=== PATIENT | female | born 1960 | race Caucasian/White ===

== ENCOUNTER 2019-09-29 15:21 | Inpatient (IN) | payer BC, SELFPAY ==
[2019-09-29 15:04] VITALS: BP 173/96; PULSE 80; RESP 16; TEMP 36.9; O2SAT 98; BMI 33.8
--- NOTE | 2019-09-29 15:16 | ED_ITS ---
HPI - Psych General: Chief Complaint: Psychiatric Symptoms Stated Complaint: SI/HI Source: patient and EMS Mode of arrival: EMS Limitations: no limitations History of Present Illness: HPI Narrative: Patient presents here with suicidal ideations. Patient is here with EMS and states that her has been fighting a lot lately and she has been drinking alcohol and has had suicidal thoughts and homicidal thoughts. She states she started getting a shotgun and either shooting herself or shooting her . She denies any worsening or improving factors. MD complaint: suicidal ideation Onset (ago): day(s) Duration: constant Relieving factors: none Exacerbating factors: none Context: recent alcohol abuse Associated symptoms: Reports depression, homicidal ideation and suicidal ideation Review of Systems Const: Denies: fever, chills, body aches or change in appetite Eyes: Denies: blurry vision or eye discomfort ENMT: Denies: throat pain or dental pain Card: Denies: chest pain Resp: Denies: shortness of breath GI: Denies: abdominal pain, nausea, vomiting or diarrhea : Denies: painful urination Musc: Denies: neck pain or back pain Skin/Breast: Denies: rash Neuro: Denies: headache Psych: Reports: depression, suicidal ideation and homicidal ideation Marc/Lymph: Denies: easy bruising All/Imm: Denies: hives PFSH ED PFSH: Social History Smoking and tobacco status: current every day smoker Physical Exam Const: COMMON NORMALS: no apparent distress, oriented x3 and healthy appearing HENMT: COMMON NORMALS: normocephalic and head/scalp atraumatic HEAD & SCALP: normocephalic and atraumatic Eye: COMMON NORMALS: PERRL and EOMs intact bilaterally PUPIL: Yes PERRL Neck/C-Spine: COMMON NORMALS: full ROM and supple Chest: COMMONS NORMALS: inspection of chest normal and palpation of chest normal Resp: COMMON NORMALS: normal respiratory effort, no retractions, no use of accessory muscles and clear to auscultation bilaterally AUSCULTATION: clear to auscultation bilaterally Cardio: COMMON NORMALS: regular rate, regular rhythm and no murmurs RATE: regular rate RHYTHM: regular rhythm GI: COMMON NORMALS: normal to inspection, nondistended, normoactive bowel sounds, soft to palpation, non-tender and no masses PALPATION: Yes soft Extremity: COMMON NORMALS: normal to inspection and full ROM Neuro: COMMON NORMALS: oriented x3, moves all extremities and no focal motor deficits Psych: COMMON NORMALS: mental status grossly normal, thought process normal and cooperative THOUGHT PROCESS: normal thought process THOUGHT CONTENT: Yes suicidality and Yes homicidality Skin: COMMON NORMALS: no rashes or lesions noted and no wounds GENERAL SKIN EXAM: no rashes or lesions noted MDM - Psych MDM Narrative: Medical decision making narrative: Patient presents for suicidal ideations along with homicidal ideations. Doing patient's medical clearance patient is found to be hyponatremic with sodium in the 121. This is likely due to her alcoholism. Spoke to hospitalist and will admit to correct her sodium. Patient is under a 96-hour hold and I spoke to Dr. Emery who is consulted. Lab Data: Labs: Lab Results 09/29/19 09/29/19 Range/Units 15:35 15:35 WBC 8.5 (4.0-10.0) 10^3/ uL RBC 4.39 (4.1-5.3) 10^6/u L Hgb 13.1 (11.5-15.3) g/dL Hct 39.0 (37.0-47.0) % MCV 88.8 (81-99) fL MCH 29.8 (28.0-34.0) pg MCHC 33.6 (30.0-36.0) g/dL RDW 13.6 (12.1-15.1) % Plt Count 361 (130-400) 10^3/c mm MPV 8.6 (7.4-10.4) fL Neut % (Auto) 61.4 % Lymph % (Auto) 32.4 % [place] % (Auto) 4.8 % Eos % (Auto) 0.5 % Baso % (Auto) 0.5 % Neut # (Auto) 5.3 (1.8-7.7) 10^3/u L Lymph # (Auto) 2.8 (0.8-4.8) 10^3/u L [place] # (Auto) 0.4 (0.2-0.9) 10^3/u L Eos # (Auto) 0.0 (0.0-0.8) 10^3/u L Baso # (Auto) 0.0 (0.0-0.1) 10^3/u L Nucleated RBC % (a uto) 0 % Nucleated RBCs # 0.0 /100WBC Sodium 121 L (136-145) mmol/L Potassium 4.3 (3.5-5.1) mmol/L Chloride 83 L (98-107) mmol/L Carbon Dioxide 24 (22-29) mmol/L Anion Gap 18.3 (5-19) BUN 3 L (6-20) mg/dL Creatinine 0.4 L (0.5-0.9) mg/dL GFR Calculation 163.9 H (90-130) mL/min Glucose 91 (65-115) mg/dL Calculated Osmolal ity 247 L (285-295) mOsm/k g Calcium 9.7 (8.5-10.5) mg/dL Total Bilirubin 0.4 (0.15-1.2) mg/dL AST 30 (0-32) U/L ALT 19 (0-33) U/L Alkaline Phosphata se 108 H (35-105) IU/L Total Protein 8.3 (6.6-8.7) g/dL Albumin 4.5 (3.5-5.2) g/dL Globulin 3.8 (1.3-4.6) g/dL Salicylates < 0.3 L (3-10) mg/dL Acetaminophen < 5.0 L (10-30) ug/mL Ethyl Alcohol 238 H (0-10) mg/dL Discharge Plan Discharge Patient Disposition: Admitted As Inpatient Clinical Impression: Suicidal ideation, Acute hyponatremia Alcohol intoxication Qualifiers: Complication of substance-induced condition: uncomplicated Qualified Code(s): F10.920 - Alcohol use, unspecified with intoxication, uncomplicated Condition: Stable Coding Level of Care Code ED Plate Hanger for [facility] Fwd Exam Comprehensive
[2019-09-29 15:45] LABS: Basophils % 0.5 %; Eosinophils % 0.5 %; Hemoglobin 13.1 g/dL (11.5-15.3); Lymphocytes # 2.8 10^3/uL (0.8-4.8); Lymphocytes % 32.4 %; Mean Corpuscular HGB Conc 33.6 g/dL (30.0-36.0); Mean Corpuscular Hemoglobin 29.8 pg (28.0-34.0); Mean Corpuscular Volume 88.8 fL (81-99); Mean Platelet Volume 8.6 fL (7.4-10.4); Monocytes # 0.4 10^3/uL (0.2-0.9); Monocytes % 4.8 %; Neutrophils # 5.3 10^3/uL (1.8-7.7); Neutrophils % 61.4 %; Nucleated Red Blood Cells % 0 %; Platelet Count 361 10^3/cmm (130-400); Red Blood Count 4.39 10^6/uL (4.1-5.3); Red Cell Distribution Width 13.6 % (12.1-15.1); White Blood Count 8.5 10^3/uL (4.0-10.0)
[2019-09-29 16:07] LABS: Acetaminophen < 5.0 ug/mL (10-30); Alanine Aminotransferase 19 U/L (0-33); Albumin Level 4.5 g/dL (3.5-5.2); Alcohol Level 238 mg/dL (0-10); Alkaline Phosphatase 108 IU/L (35-105); Anion Gap 18.3 (5-19); Aspartate Amino Transferase 30 U/L (0-32); Blood Urea Nitrogen 3 mg/dL (6-20); Calcium 9.7 mg/dL (8.5-10.5); Carbon Dioxide 24 mmol/L (22-29); Chloride 83 mmol/L (98-107); Globulin 3.8 g/dL (1.3-4.6); Glomerular Filtration Rate 163.9 mL/min (90-130); Glucose 91 mg/dL (65-115); Osmolality Calculated 247 mOsm/kg (285-295); Potassium 4.3 mmol/L (3.5-5.1); Salicylate < 0.3 mg/dL (3-10); Sodium 121 mmol/L (136-145); Total Bilirubin 0.4 mg/dL (0.15-1.2); Total Protein 8.3 g/dL (6.6-8.7)
--- NOTE | 2019-09-29 16:18 | XR_ITS ---
WS: [id number] PORTABLE CHEST HISTORY: Psychiatric evaluation. COMPARISON: 12/08/2015 Lungs are clear and well expanded. No pleural effusion or pneumothorax. Cardiac size: Normal. Mediastinum/Aorta: Normal mediastinum. No osseous abnormality seen. XR/XR chest 1V portable [id number] IMPRESSION: Unremarkable portable chest.
--- NOTE | 2019-09-29 16:34 | P.HP_ITS ---
Providers/Chief Complaint Primary Care Provider: Denise Koch Chief Complaint: SI, ALCOHOL INTOX, HYPONATREMIA History of Present Illness Bruna Benjamin is a 59 year old female with past medical history of alcohol abuse, suicidal ideations in the past for which she has been admitted to the neuropsychiatric unit, history of anxiety and depression, post cholecystectomy, hepatitis C, HTN, who presented to the ER today complaining that she has suicidal and homicidal ideations. Patient states she has been feeling more and more depressed for last few weeks. Patient states she consumes 6-7 beers every day with last binge today morning. She denies of any dizziness, headache, nausea, vomiting, abdominal pain, dysuria, diarrhea, headache, hallucinations, tremors. Patient was put in 96-hour hold from the ER and psychiatry was consulted. Blood work was within normal limits except sodium being 121 so hospitalist service was requested for further work-up. Review of Systems Const: Denies: fever, chills, body aches, change in appetite, malaise, night sweats, diaphoresis, change in sleep pattern, daytime sleepiness or snoring Eyes: Denies: change in vision, blurry vision, photophobia, eye discomfort or eye discharge ENMT: Denies: throat pain, enlarged tonsils, hoarseness, mouth pain, oral sores/lesions, dry mouth, tinnitus, nasal congestion or post nasal drip Card: Denies: chest pain, palpitations, irregular heart rhythm, edema, swelling of feet/ankles, lightheadedness, syncope, pre-syncope, shortness of breath on exertion, shortness of breath when lying down, leg pain with exertion or bluish discoloration of hands/feet Resp: Denies: shortness of breath, productive cough, non-productive cough, wheezing, stridor, pain on inspiration, change in phlegm color, coughing up blood or chest congestion GI: Denies: abdominal pain, nausea, vomiting, vomiting blood, coffee grounds in vomit, difficulty swallowing, heartburn/indigestion, diarrhea, constipation, bloating, cramping, change in bowel habits, painful bowel movements, blood in stool or black tarry stool : Denies: flank pain, painful urination, urinary frequency, urinary urgency, urinary hesitancy, nighttime urination or blood in urine Musc: Denies: neck pain, back pain, extremity pain, joint pain, joint swelling, redness, joint stiffness or limited range of motion Neuro: Denies: headache, numbness in extremities, weakness in extremities, changes in sensation, lack of coordination, difficulty walking, frequent falls, dizziness, vertigo, confusion, slurred speech, difficulty communicating thoughts or seizure-like activity Psych: Reports: anxiety, depression and mood swings; Denies: panic attacks, hopelessness or irritability Endo: Denies: excessive urination, excessive thirst, tired all the time, cold intolerance, excessive sweating, flushing or heat intolerance Marc/Lymph: Denies: easy bruising or easy bleeding All/Imm: Denies: tongue swelling, facial swelling or acute wheezing Medications/Allergies Home Medications Medication Instructions Recorded Confirmed Last Taken Type gabapentin 800 mg PO TID 09/29/19 09/29/19 09/29/19 History lisinopril 20 mg PO DAILY 09/29/19 09/29/19 09/29/19 History omeprazole 40 mg PO DAILY 09/29/19 09/29/19 09/29/19 History oxycodone-acetaminophen [Percocet] 1 tab PO Q4H PRN 09/29/19 09/29/19 09/29/19 History quetiapine 200 mg PO BEDTIME 09/29/19 09/29/19 Unknown History tizanidine 4 mg PO BID PRN 09/29/19 09/29/19 Unknown History Allergies Allergy/AdvReac Type Severity Reaction Status Date / Time No Known Allergies Allergy Verified 09/29/19 15:16 PFSH Acute PFSH: Medical History (Updated 09/29/19 @ 16:40 by Scott Parks MD) Alcohol abuse Anxiety Bipolar disorder Chronic pain COPD (chronic obstructive pulmonary disease) Hepatitis C Hypertension Surgical History (Updated 09/29/19 @ 16:40 by Scott Parks MD) History of cholecystectomy Hx of right knee surgery Family History (Updated 09/29/19 @ 16:40 by Scott Parks MD) Other Alcoholism /alcohol abuse Cancer Social History (Updated 09/29/19 @ 16:40 by Scott Parks MD) Smoking and tobacco status: current every day smoker Alcohol intake: current Vitals/I&O/Wt Last Vital Signs Temp 98.4 F 09/29/19 15:04 Pulse 80 09/29/19 15:04 Resp 16 09/29/19 15:04 BP 173/96 09/29/19 15:04 Pulse Ox 98 09/29/19 15:04 Weight last 48 hrs Weight 83.915 kg Physical Exam Narrative: EXAM NARRATIVE: General: No acute distress, AO x3 HEENT: PERRLA, pupils bilaterally equal and reactive Chest: Normal vesicular breath sounds, no added sounds, equal good air entry bilaterally CVS: S1-S2 regular, no murmurs, no tachycardia, no gallops, no rubs Abdomen: Soft, nontender, no organomegaly, bowel sounds present Neuro: No focal deficits, no facial deformity, AO x3, power 5/5 in all limbs Data : 09/29/19 15:35 09/29/19 15:35 A&P Assessment and plan (1) Suicidal ideation: Status: Acute (2) Alcohol intoxication: Status: Acute Qualifiers: Complication of substance-induced condition: uncomplicated Qualified Co de(s): F10.920 - Alcohol use, unspecified with intoxication, uncomplicated (3) Acute hyponatremia: Status: Acute (4) Hypertension: Status: Acute (5) Chronic pain: Status: Acute (6) Bipolar disorder: Status: Acute Additional A&P Information Suicidal ideation: History of depression/anxiety/bipolar disorder: 96-hour hold placed by the ER. Psychiatry consulted. Continue home medication of Seroquel. Check vitamin B12, folate, TSH levels. Check urine drug screen. Alcoholic intoxication: Blood alcohol level elevated. Banana bag, p.o. thiamine, p.o. folic acid, oral multivitamin. After banana bag normal saline at 75 cc/h. [facility] protocol Ativan. Protonix 40 mg oral daily. Acute hyponatremia: Sodium levels 121. In past has gone down as low as 122 as per the records. Check urine electrolytes, urine osmolality, serum osmolality. IV fluids with normal saline at 75 cc/h. Check BMP every 12 hourly to prevent fast overcorrection. Check hepatitis and HIV, hCG, urinalysis, ammonia levels. Chronic pain syndrome: Patient is on Percocet every 4 hourly, gabapentin 800 mg 3 times daily. We will start on gabapentin 300 3 times daily, Percocet 5/325 every 6 hours as needed to avoid withdrawal. Hypertension: For now start on home dose of lisinopril. We will continue to monitor blood pressures. We will change medications as per the clinical course. Full code. Regular diet. Attestations Medical Necessity Statement*: More than 2 midnights for suicidal ideation. 96-hour hold Time Spent in Patient Care: Greater than 35 minutes Coding Level of Care Code Acute Electric Meter Installer for [facility] Fwd Diagnoses Suicidal ideation R45.851 Alcohol intoxication F10.920 Complication of substance-induced condition: uncomplicated Acute hyponatremia E87.1 Hypertension I10 Chronic pain G89.29 Bipolar disorder F31.9
--- NOTE | 2019-09-29 16:52 | PC.NURSE ---
portable chest xray at bedside
[2019-09-29] MEDS: sodium chloride 0.9% 1,000 ML 999 ML IV (16:57)
[2019-09-29 16:58] LABS: Iron 80 ug/dL (37-145); Percent Saturation 25.2 % (20-50); Total Iron Binding Capacity 317 mcg/dl; Unsaturated Iron Binding 237 ug/dL (112-347)
[2019-09-29 17:14] LABS: HIV 1 & 2 Antibody Non-Reactive (Non-Reactiv); HIV 1 & 2 Antigen Non-Reactive (Non-Reactiv)
[2019-09-29] MEDS: folic acid 1 MG, multivitamin inj 10 ML, thiamine 100 MG in sodium chloride 0.9% 1,000 ML 252.8 MG IV (17:15)
[2019-09-29 17:21] LABS: Hepatitis A Antibody IgM Non-Reactive (Nonreactive); Hepatitis B Core AB, Total Non-Reactive (Nonreactive); Hepatitis B Surface AB 3.5 (0-8.5); Hepatitis B Surface Antigen Non-Reactive (Nonreactive); Hepatitis C Virus Antibody Reactive (Nonreactive)
[2019-09-29 17:35] LABS: Amphetamines Screen Urine Negative (Negative); Barbiturates Screen Urine Negative (Negative); Benzodiazepines Screen Urine Negative (Negative); Cocaine Screen Urine Negative (Negative); HCG Qualitative Urine. Negative (Negative); Opiate Screen Urine Negative (Negative); PCP Screen Urine Negative (Negative); THC Screen Urine Negative (Negative)
[2019-09-29 17:45] LABS: Potassium, Radom Urine 30 mmol/L; Urine Random Chloride 56 mmol/L; Urine Random Sodium 41 mmol/L
[2019-09-29 17:57] LABS: Urine Appearance Clear (CLEAR); Urine Color Yellow (Yellow); pH Urine 7 (5-7)
[2019-09-29 17:58] LABS: Add Urine Culture? No; Bacteria Urine 3+; Bilirubin Urine Neg (NEGATIVE); Blood Urine Neg (Negative); Glucose Urine UA Norm (Normal); Ketones Urine Negative (Negative); Leukocyte Esterase Urine Negative (Negative); Nitrate Urine Negative (Negative); Protein Urine Neg (Negative); Squamous Epithelial Cell Urine 0-4 (0-5); Urobilinogen Urine Norm (Negative); WBC Urine 0-4 /hpf (0-5)
[2019-09-29 18:40] VITALS: BP 164/85; PULSE 86; RESP 16; TEMP 36.6; O2SAT 96
[2019-09-29 18:47] VITALS: PULSE 87; RESP 16; O2SAT 97
[2019-09-29 18:59] VITALS: RESP 18
[2019-09-29] MEDS: oxyCODONE-APAP 5-325 mg Tablet 1 TAB PO (18:59)
[2019-09-29 20:00] VITALS: BP 162/84; PULSE 90; RESP 18; TEMP 36.8; O2SAT 93
[2019-09-29] MEDS: gabapentin 300 mg Capsule PO (20:12)
[2019-09-29] MEDS: enoxaparin 40 mg/0.4 mL Syringe SUBCUT (20:12)
[2019-09-29] MEDS: LORazepam 2 mg Tablet PO (20:12)
[2019-09-29] MEDS: quetiapine 100 mg Tablet 200 MG PO (20:13)
[2019-09-29] MEDS: sodium chloride 0.9% 1,000 ML 75 ML IV (20:13)
[2019-09-29 20:22] LABS: Lactic Sepsis W/Reflex 1.1 mmol/L (0.5-2.2)
[2019-09-29 20:29] LABS: Thyroid Stimulating Hormone 0.18 uIU/mL (0.27-4.20)
--- NOTE | 2019-09-29 21:46 | PC.NURSE ---
Patient is resting with eyes closed.
--- NOTE | 2019-09-29 21:51 | PC.NURSE ---
Gave report to AUDI Bahena. Shruti to assume patient care at this time.
[2019-09-30] VITALS (10 sets, daily range): BP systolic 139–176; BP diastolic 79–95; PULSE 81–100; RESP 15–20; TEMP 36.4–36.9; O2SAT 91–98
[2019-09-30] MEDS: oxyCODONE-APAP 5-325 mg Tablet 1 TAB PO ×3 (00:56→15:36)
[2019-09-30 05:34] LABS: Basophils % 0.4 %; Eosinophils # 0.1 10^3/uL (0.0-0.8); Eosinophils % 0.9 %; Hematocrit 34.6 % (37.0-47.0); Hemoglobin 11.4 g/dL (11.5-15.3); Lymphocytes # 2.8 10^3/uL (0.8-4.8); Lymphocytes % 29.7 %; Mean Corpuscular HGB Conc 32.9 g/dL (30.0-36.0); Mean Corpuscular Hemoglobin 29.8 pg (28.0-34.0); Mean Corpuscular Volume 90.6 fL (81-99); Mean Platelet Volume 9.2 fL (7.4-10.4); Monocytes % 10.8 %; Neutrophils # 5.5 10^3/uL (1.8-7.7); Neutrophils % 57.9 %; Nucleated Red Blood Cells % 0 %; Platelet Count 324 10^3/cmm (130-400); Red Blood Count 3.82 10^6/uL (4.1-5.3); Red Cell Distribution Width 14.1 % (12.1-15.1); White Blood Count 9.5 10^3/uL (4.0-10.0)
[2019-09-30 05:58] LABS: Alanine Aminotransferase 16 U/L (0-33); Albumin Level 3.9 g/dL (3.5-5.2); Alkaline Phosphatase 81 IU/L (35-105); Anion Gap 14.9 (5-19); Aspartate Amino Transferase 26 U/L (0-32); Blood Urea Nitrogen 6 mg/dL (6-20); Calcium 9.3 mg/dL (8.5-10.5); Carbon Dioxide 24 mmol/L (22-29); Chloride 99 mmol/L (98-107); Globulin 3.1 g/dL (1.3-4.6); Glomerular Filtration Rate 126.7 mL/min (90-130); Glucose 72 mg/dL (65-115); Osmolality Calculated 272 mOsm/kg (285-295); Potassium 3.9 mmol/L (3.5-5.1); Sodium 134 mmol/L (136-145); Total Bilirubin 0.5 mg/dL (0.15-1.2)
[2019-09-30] MEDS: multivitamin therapeutic Tablet 1 TAB PO (08:16)
[2019-09-30] MEDS: thiamine 100 mg Tablet PO (08:16)
[2019-09-30] MEDS: lisinopril 20 mg Tablet PO (08:16)
[2019-09-30] MEDS: gabapentin 300 mg Capsule PO ×3 (08:16→21:01)
[2019-09-30] MEDS: folic acid 1 mg Tablet PO (08:16)
--- NOTE | 2019-09-30 10:03 | PC.CHAP ---
Pastoral Care Encounter/Spiritual Assessment Type of Contact [] Declined medical coding specialist visit [] Patient/Family/Request visit [] Outpatient visit [] Follow-up visit [] Physician referral [] Code/Alert [x] Routine visit [] Staff referral [] Actively dying [] Patient sleeping [] Family support [] [] Out of room [] Palliative care [] [] Receiving care in room [] Pre-surgical visit [] Trauma [] Long length of stay [] ICU visit [] Other: Relational/Emotional Strength [] Patient feels connected with others/family/visitors/staff [] Distress [] Loneliness/isolation [] Abandonment Spirituality of Patient [] Person of Cindy [] Attends Denominational of their Cindy [] Believes in Prayer [] Reads Bible or Orthodoxy materials [] There are Spiritual issues to be addressed Public Relations Supervisor Interventions [] Prayer [] Active listening [] Non-anxious presence [] Spiritual/emotional support [] Crisis/trauma care [] Spiritual counseling [] Bereavement support [] Provided bereavement packet [] Provided Bible/devotional materials [] Provided toy/stuffed animal, coloring book to patient or family member [] Provided Communion [] Anointing/[place] [] Salvation [x] Completed spiritual assessment [] Other: Impact on Illness or Injury [] Angry [] Fearful [] Anxious [] Often cries [] Exhaustion [] Unable to work [] Unable to attend jain [] Unable to walk/stand [] Unable to read [] Unable to drive [] Unable to eat/drink [] Unable to sleep [] Unable to be with family [] Patient intubated [] Other: Summary Patient didn't declined Roro- Patient declined prayer. Advised her if she changed mind just call. Time spent with patient 5 min
[2019-09-30] MEDS: tizanidine 4 mg Tablet PO ×2 (10:34→21:01)
[2019-09-30] MEDS: amlodipine 5 mg Tablet PO (10:41)
--- NOTE | 2019-09-30 11:15 | PC.NURSE ---
Report called to Candice HUNTLEY in N[facility]. transported to [facility] by security via wheelchair.
--- NOTE | 2019-09-30 15:28 | PM.PN ---
Subjective Subjective: Interval history: No acute events overnight. Patient remains comfortable, anxious, jittery on examination today morning. Labs and vitals noted. Sitter at bedside. Denies of having any nausea, vomiting, headache, dizziness, palpitations, tremors. Vitals/I&O/Wt Last Vital Signs Temp 97.6 F 09/30/19 12:00 Pulse 85 09/30/19 12:00 Resp 20 H 09/30/19 12:00 BP 147/95 09/30/19 12:00 Pulse Ox 97 09/30/19 12:00 09/30/19 09/30/19 09/30/19 06:59 14:59 22:59 Intake Total 200 / 1661.2 Balance 200 / 1661.2 Weight last 48 hrs Weight 78.245 kg Weight 83.915 kg Physical Exam Narrative: EXAM NARRATIVE: General: No acute distress, AO x3 HEENT: PERRLA, pupils bilaterally equal and reactive Chest: Normal vesicular breath sounds, no added sounds, equal good air entry bilaterally CVS: S1-S2 regular, no murmurs, no tachycardia, no gallops, no rubs Abdomen: Soft, nontender, no organomegaly, bowel sounds present Neuro: No focal deficits, no facial deformity, AO x3, power 5/5 in all limbs Data : 09/30/19 04:38 09/30/19 04:38 A&P Assessment and plan (1) Suicidal ideation: Status: Acute (2) Alcohol intoxication: Status: Acute Qualifiers: Complication of substance-induced condition: uncomplicated Qualified Code(s): F10.920 - Alcohol use, unspecified with intoxication, uncomplicated (3) Acute hyponatremia: Status: Acute (4) Hypertension: Status: Acute (5) Chronic pain: Status: Acute (6) Bipolar disorder: Status: Acute Additional A&P Information Suicidal ideation: History of depression/anxiety/bipolar disorder: 96-hour hold placed by the ER. Psychiatry consulted. Continue home medication of Seroquel. Results of vitamin B12, folate, TSH appreciated. Check free T3 and T4. Alcoholic intoxication: No sign of withdrawal for now. Continue with Protonix 40 mg daily. Ativan as per [facility] protocol. Acute hyponatremia: Most likely from dehydration. Resolved. Sodium 134. Stop IV fluids. Chronic pain syndrome: Patient is on Percocet every 4 hourly, gabapentin 800 mg 3 times daily. We will start on gabapentin 300 3 times daily, Percocet 5/325 every 6 hours as needed to avoid withdrawal. Hypertension: Blood pressure continues to remain on the higher side. We will add amlodipine 5 mg daily to home dose of lisinopril 20 mg daily. Goal blood pressure less than 140/80 mmHg. Patient is stable enough to be transferred over to NPU. Full code. Regular diet. Attestations Medical Necessity Statement*: Suicidal ideation, 96-hour hold. Time Spent in Patient Care: 16 - 35 minutes Coding Level of Care Code Acute Mechanotherapist for [facility] Fwd Diagnoses Suicidal ideation R45.851 Alcohol intoxication F10.920 Complication of substance-induced condition: uncomplicated Acute hyponatremia E87.1 Hypertension I10 Chronic pain G89.29 Bipolar disorder F31.9
[2019-09-30 17:33] LABS: Free T4 Free Thyroxine 0.87 ng/dL (0.82-1.77); T3 Free 2.2 PG/ML (2.0-4.4)
[2019-09-30] MEDS: hyDROXYzine 25 mg Capsule 50 MG PO (18:49)
--- NOTE | 2019-09-30 18:49 | PC.NURSE ---
PRN VISTARIL 50 MG GIVEN PO PER PT C/O ANXIETY AND IRRITABILITY
[2019-09-30] MEDS: quetiapine 100 mg Tablet 200 MG PO (20:59)
[2019-10-01] VITALS (7 sets, daily range): BP systolic 115–150; BP diastolic 81–95; PULSE 95–108; RESP 17–20; TEMP 36.6–36.9; O2SAT 95–98
[2019-10-01] MEDS: oxyCODONE-APAP 5-325 mg Tablet 1 TAB PO ×2 (01:19→08:24)
[2019-10-01] MEDS: LORazepam 2 mg Tablet PO (03:39)
--- NOTE | 2019-10-01 03:42 | PC.NURSE ---
PRN ATIVAN ATIVAN 2 MG PO GIVEN PER [facility] PROTOCOL. [facility] SCORE 11. WILL MONITOR FOR MEDICATION EFFECTIVENESS.
[2019-10-01] MEDS: gabapentin 300 mg Capsule PO (08:24)
[2019-10-01] MEDS: thiamine 100 mg Tablet PO (08:24)
[2019-10-01] MEDS: multivitamin therapeutic Tablet 1 TAB PO (08:24)
[2019-10-01] MEDS: lisinopril 20 mg Tablet PO (08:24)
[2019-10-01] MEDS: amlodipine 5 mg Tablet PO (08:24)
[2019-10-01] MEDS: folic acid 1 mg Tablet PO (08:24)
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
[2019-10-01] MEDS: OLANZapine ODT 5 MG TABLET PO ×2 (12:29→18:13)
--- NOTE | 2019-10-01 12:30 | PC.NURSE ---
Addendum entered by Nikole Castillo LPN 10/01/19 13:55: prn med effective no further c/o agitation currently Original Note: PRN ZYPREXA ZYDIS 5 MG GIVEN PO PER PT C/O STATED AGITATION. PT ASKING FOR ANOTHER ATIVAN . NO ATIVAN GIVEN. WILL CONT TO MONITOR
[2019-10-01] MEDS: oxyCODONE-APAP 10-325 mg Tablet 1 TAB PO ×2 (15:36→21:22)
[2019-10-01] MEDS: gabapentin 400 mg Capsule 800 MG PO ×2 (15:36→21:23)
--- NOTE | 2019-10-01 15:36 | PC.NURSE ---
PT REQUESTED PAIN MED FOR HER LOWER BACK. ADMINISTERED PERCOCET 10/325 MG ORDERED. WILL CONT TO MONITOR AND FOLLOW UP NEEDED
--- NOTE | 2019-10-01 18:13 | PC.NURSE ---
PRN ZYRPEXA ZYDIS 5 MG GIVEN PO PER PT C/O STATED AGITATION. PT DOES NOT APPEAR TO BE AGITATED, SHE CONVERSES CALMLY WITH ANOTHER FEMALE PATIENT ON THE UNIT. PT ASKS FOR PRN MEDICATIONS OFTEN, SPECIFICALLY ATIVAN WILL CONT TO MONITOR
[2019-10-01] MEDS: quetiapine 100 mg Tablet 200 MG PO (21:21)
[2019-10-02] MEDS: oxyCODONE-APAP 10-325 mg Tablet 1 TAB PO ×4 (03:51→20:33)
[2019-10-02 06:00] VITALS: BP 116/81; PULSE 116; RESP 16; TEMP 36.7; O2SAT 93
[2019-10-02 08:27] VITALS: RESP 19
[2019-10-02] MEDS: gabapentin 400 mg Capsule 800 MG PO ×3 (08:27→20:34)
[2019-10-02] MEDS: amlodipine 5 mg Tablet PO (08:27)
[2019-10-02] MEDS: thiamine 100 mg Tablet PO (08:27)
[2019-10-02] MEDS: lisinopril 20 mg Tablet PO (08:27)
[2019-10-02] MEDS: folic acid 1 mg Tablet PO (08:27)
[2019-10-02] MEDS: multivitamin therapeutic Tablet 1 TAB PO (08:27)
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
[2019-10-02 14:00] VITALS: BP 150/91; PULSE 89; RESP 18
[2019-10-02 14:49] VITALS: RESP 20
[2019-10-02] MEDS: hyDROXYzine 25 mg Capsule 50 MG PO ×2 (14:50→20:33)
--- NOTE | 2019-10-02 14:50 | PC.NURSE ---
PRN VISTARIL VISTARIL 50MG PO PER PATIENT C/O ANXIETY. WILL CONTINUE TO MONITOR FOR MEDICATION EFFECTIVENESS.
--- NOTE | 2019-10-02 15:40 | PC.NURSE ---
PRN VISTARIL FOLLOW UP MEDICATION EFFECTIVE. NO FURTHER C/O ANXIETY.
[2019-10-02 20:33] VITALS: RESP 16
[2019-10-02 20:36] VITALS: BP 148/91; PULSE 93; RESP 20; TEMP 37.1; O2SAT 98
[2019-10-02] MEDS: quetiapine 100 mg Tablet 200 MG PO (21:09)
[2019-10-03] VITALS (7 sets, daily range): BP systolic 106–173; BP diastolic 68–83; PULSE 85–95; RESP 16–21; TEMP 36.9; O2SAT 94–98
[2019-10-03] MEDS: oxyCODONE-APAP 10-325 mg Tablet 1 TAB PO ×4 (06:10→20:51)
[2019-10-03] MEDS: lisinopril 20 mg Tablet PO (09:49)
[2019-10-03] MEDS: multivitamin therapeutic Tablet 1 TAB PO (09:49)
[2019-10-03] MEDS: folic acid 1 mg Tablet PO (09:50)
[2019-10-03] MEDS: thiamine 100 mg Tablet PO (09:50)
[2019-10-03] MEDS: amlodipine 5 mg Tablet PO (09:50)
[2019-10-03] MEDS: gabapentin 400 mg Capsule 800 MG PO ×3 (09:50→20:52)
[2019-10-03 15:15] LABS: Osmolality Urine 315 mOsm/kg (50-1200)
[2019-10-03] MEDS: hyDROXYzine 25 mg Capsule 50 MG PO (20:51)
[2019-10-03] MEDS: OLANZapine ODT 5 MG TABLET PO (20:52)
[2019-10-03] MEDS: quetiapine 100 mg Tablet 200 MG PO (22:02)
[2019-10-04 06:00] VITALS: BP 136/81; PULSE 94; RESP 16; RESP 17; TEMP 36.8; O2SAT 96
[2019-10-04] MEDS: oxyCODONE-APAP 10-325 mg Tablet 1 TAB PO ×2 (06:00→10:47)
[2019-10-04] MEDS: folic acid 1 mg Tablet PO (08:36)
[2019-10-04] MEDS: multivitamin therapeutic Tablet 1 TAB PO (08:36)
[2019-10-04] MEDS: amlodipine 5 mg Tablet PO (08:36)
[2019-10-04] MEDS: thiamine 100 mg Tablet PO (08:36)
[2019-10-04] MEDS: gabapentin 400 mg Capsule 800 MG PO (08:36)
[2019-10-04] MEDS: lisinopril 20 mg Tablet PO (08:36)
[2019-10-04 10:47] VITALS: RESP 19
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
[2019-10-04 13:32] VITALS: BP 147/82; PULSE 99; RESP 20; O2SAT 99
[2019-10-04 13:43] VITALS: BP 147/82; PULSE 99; RESP 20; O2SAT 99
== END 2019-10-04 13:55 | disposition home or self-care (01) | DRG 885 ==
LOC: ER 16:21 → MEDSURG 17:20 → NP 09-30 11:43
PROVIDERS: Admitting Provider Student in an Organized Health Care Education/Training Program; Emergency Provider Emergency Medicine; Family Provider Nurse Practitioner Family; PCP Nurse Practitioner Family; Visit Provider Psychiatry & Neurology Psychiatry
DX: F33.1 Major depressive disorder, recurrent, moderate (principal); R45.851 Suicidal ideations; E87.1 Hypo-osmolality and hyponatremia; F10.129 Alcohol abuse with intoxication, unspecified; F41.9 Anxiety disorder, unspecified; Z90.49 Acquired absence of other specified parts of digestive tract; B19.20 Unspecified viral hepatitis C without hepatic coma; I10 Essential (primary) hypertension; R45.850 Homicidal ideations; G89.29 Other chronic pain; J44.9 Chronic obstructive pulmonary disease, unspecified; F17.210 Nicotine dependence, cigarettes, uncomplicated; E86.0 Dehydration; F43.10 Post-traumatic stress disorder, unspecified; Z79.891 Long term (current) use of opiate analgesic; Z63.0 Problems in relationship with spouse or partner
CPT/HCPCS: 12345; 36415; 71045; 80053; 80306; 80307; 81001; 81025; 82436; 83540; 83550; 83605; 83935; 84133; 84300; 84439; 84443; 84481; 85025; 86705; 86706; 86709; 86803; 87340; 87806; 96372; 99285; J1650; J3411; J3490; J7030

== ENCOUNTER → 2019-10-06 10:06 | Outpatient (BNVA) | payer BC, SELFPAY | PROVIDERS: Family Provider Nurse Practitioner Family; PCP Nurse Practitioner Family; Visit Provider Counselor Professional | DX: F33.2 Major depressive disorder, recurrent severe without psychotic features (principal); F41.1 Generalized anxiety disorder; F10.10 Alcohol abuse, uncomplicated | CPT/HCPCS: 90791 ==